=== PATIENT | male | born 1955 | race Caucasian/White ===

== ENCOUNTER 2024-10-26 18:12 | Emergency (ER) | payer MEDICARE ==
[2024-10-26] MEDS: Diphtheria,Pertussis(Acell),Tetanus Vaccine 0.5 ML Syringe IM ONE (19:48)
[2024-10-26] MEDS: Lidocaine 1% with EPINEPHrine 1:100,000 20 ML MDV INJECT ONE (19:49)
[2024-10-26] MEDS: Bacitracin Oint 1 GM U/D Packet TOP ONE (19:50)
== END 2024-10-26 21:40 | disposition home or self-care (01) ==
LOC: JP.ED 18:12
DX: S91.112A Laceration without foreign body of left great toe without damage to nail, initial encounter (principal); S91.115A Laceration without foreign body of left lesser toe(s) without damage to nail, initial encounter; Z23 Encounter for immunization; Z79.899 Other long term (current) drug therapy; W22.8XXA Striking against or struck by other objects, initial encounter
CPT/HCPCS: 11730; 12002; 73630; 90471; 90715; 99283; J2003; J2004; A4217